=== PATIENT | male | born 1935 | race Caucasian/White ===

== ENCOUNTER → 2018-06-06 | Outpatient (CLI) | payer MEDICARE, MEDICAID ==
[~2018-06-06] MED LIST: ACET-784 PO; ATOR20TA65 PO; BACL10TA PO; BUME1TAB12 PO; CARV25TA77 PO; DOCU250C91 PO; ISOS1TAB2 PO; LEVE500T8 PO; METO2.5T2 PO; OMEP10CA2 PO; SITA50 PO; TAMS0.4C32 PO
[2018-06-06 16:13] VITALS: BP 104/56
== END | disposition home or self-care (01) ==
LOC: SRCNTR 13:39
PROVIDERS: ATTEND Internal Medicine Clinical Cardiac Electrophysiology
DX: Z45.018 Encounter for adjustment and management of other part of cardiac pacemaker (principal); I11.0 Hypertensive heart disease with heart failure; I50.9 Heart failure, unspecified; E11.9 Type 2 diabetes mellitus without complications; Z86.73 Personal history of transient ischemic attack (TIA), and cerebral infarction without residual deficits
CPT/HCPCS: G0463

== ENCOUNTER → 2018-06-14 | Outpatient (CLI) | payer MEDICARE, MEDICAID ==
[2018-06-14 09:28] VITALS: BP 104/58
== END | disposition home or self-care (01) ==
LOC: SRCNTR 09:06
PROVIDERS: ATTEND Internal Medicine Clinical Cardiac Electrophysiology
DX: Z45.018 Encounter for adjustment and management of other part of cardiac pacemaker (principal)
CPT/HCPCS: G0463